=== PATIENT | male | born 1950 | race Caucasian/White ===

== ENCOUNTER 2016-07-01 13:53 | Inpatient (IN) | payer BC, MEDICARE ==
[~2016-07-01 13:53] MED LIST: ALTACE10 MG; BACTRIM DS TABL1 TAB; BACTROBAN15 GM; CHLORASEPTIC LO1 LOZ; CHLORHEXIDINE; FLONASE16 GM; HYDROCHLOROTHIA25 MG; RIFAMPIN300 MG; SYNALAR; TYLENOL325 MG; [UNRECOGNIZED DRUG - OTHER]
[2016-07-01] MEDS ORDERED: TYLENOL EXTRA500 M1 PO (14:54)
[2016-07-01] MEDS ORDERED: ULTRAM50 M1 PO (14:54)
[2016-07-01] MEDS ORDERED: ADVIL200 M2 PO (14:55)
[2016-07-01] MEDS ORDERED: COZAAR25 M1 PO (15:59)
[2016-07-01] MEDS ORDERED: ZOCOR20 M1 PO (15:59)
[2016-07-01] MEDS ORDERED: TENORMIN100 M1 PO (15:59)
[2016-07-01] MEDS ORDERED: ASPIRIN EC81 MG PO (16:00)
[2016-07-01] MEDS ORDERED: ISOSORBIDE MONO30 M4 PO (16:01)
[2016-07-01] MEDS ORDERED: ALEVE220 M4 PO (16:01)
[2016-07-01 17:54] LABS: INR 1.1 INR (0.9-1.1); PROTHROMBIN TIME 12.3 SECONDS (9.0-13.6)
[2016-07-01 17:58] LABS: BASO % 0.3 % (0-2); EOS % 3.9 % (0-7); EOSINOPHIL ABSOLUTE COUNT 0.3 tho/cmm (0.0-0.7); HCT-HEMATOCRIT 43.4 % (36.0-53.5); HGB-HEMOGLOBIN 15.1 gm/dl (13.5-17.0); IMMATURE GRANULOCYTES ABSOLUTE 0.01 tho/cmm (0-0.03); IMMATURE GRANULOCYTES PERCENT 0.1 % (0-0.3); LYMPH % 32.3 % (20-45); LYMPH ABSOLUTE COUNT 2.5 tho/cmm (0.8-4.5); MCH (MEAN CORPUSCULAR HGB) 34.2 pg (28.0-32.0); MCHC MEAN CORPUSCULAR HGB CONC 34.8 % (32.0-36.0); MCV (MEAN CELL VOLUME) 98.4 fl (82.0-96.0); MEAN PLATELET VOLUME 9.5 cmc (9.4-12.4); MONOCYTE ABSOLUTE COUNT 0.9 tho/cmm (0.0-1.2); NEUTROPHILS % 52.4 % (40-80); PLATELET COUNT 250 tho/cmm (150-450); RED BLOOD COUNT 4.41 mil/cmm (4.40-5.70); WHITE BLOOD COUNT 7.7 tho/cmm (4.0-10.0)
[2016-07-01 18:01] LABS: ANION GAP 11 mmol/L (0-20); BLOOD UREA NITROGEN 16 mg/dl (6-24); CALCIUM 8.8 mg/dl (8.5-10.5); CARBON DIOXIDE-VENOUS 29 mmol/L (22-32); CHLORIDE 105 mmol/l (96-110); CREATININE 0.92 mg/dl (0.60-1.30); GLUCOSE 109 mg/dL (70-110); SODIUM 141 mmol/L (135-145); eGFR VALUE FOR BLACK >90 mL/Min
[2016-07-01 18:02] LABS: POTASSIUM 4.1 mmol/L (3.7-5.1)
[2016-07-03] MEDS ORDERED: NORCO 5-325 TA1 EACH PO (09:35)
== END 2016-07-03 15:17 | DRG 520 ==
LOC: 5EA 13:53 → ORE 07-02 12:19 → 5EA 07-02 15:53
PROVIDERS: Hospitalist; ADMIT Orthopaedic Surgery Orthopaedic Surgery of the Spine
PROC: 0SB20ZZ Excision of Lumbar Vertebral Disc, Open Approach (ICD-10-PCS; principal; 2016-07-02)
PROC: 01NB0ZZ Release Lumbar Nerve, Open Approach (ICD-10-PCS; 2016-07-02)
DX: M51.16 Intervertebral disc disorders with radiculopathy, lumbar region (principal); I10 Essential (primary) hypertension; I25.10 Atherosclerotic heart disease of native coronary artery without angina pectoris; E78.5 Hyperlipidemia, unspecified; N40.0 Benign prostatic hyperplasia without lower urinary tract symptoms; Z79.82 Long term (current) use of aspirin; Z95.0 Presence of cardiac pacemaker
CPT/HCPCS: G0009; G8978-GO-CJ; G8978-GP-CI; G8979-GO-CJ; G8979-GP-CI; G8980-GO-CJ; G8980-GP-CI; J2270; J3370